=== PATIENT | male | born 2005 | race Caucasian/White ===

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

== ENCOUNTER 2023-02-21 15:14 | Emergency (ER) | payer OTHER ==
[~2023-02-21] VITALS: Ht 185.4 cm; Wt 80.0 kg
[2023-02-21] MEDS ORDERED: NAPROSYN500 MG PO (15:41)
[2023-02-21 15:54] VITALS: BP 143/81
== END 2023-02-21 15:52 | disposition home or self-care (01) ==
LOC: ED 15:14
DX: S39.011A Strain of muscle, fascia and tendon of abdomen, initial encounter (principal); J45.909 Unspecified asthma, uncomplicated; Z88.6 Allergy status to analgesic agent; X50.0XXA Overexertion from strenuous movement or load, initial encounter; Y99.0 Civilian activity done for income or pay
CPT/HCPCS: 99283

== ENCOUNTER 2023-03-02 18:38 | Emergency (ER) | payer OTHER ==
[~2023-03-02] VITALS: Ht 185.4 cm; Wt 79.0 kg
[~2023-03-02 18:38] MED LIST changes: +NAPROSYN500 MG PO
--- OUTSIDE RECORDS SUMMARY | 2023-03-02 18:45 | XMS ---
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 ESavanna VISIT COUNT (12 MO.) 2 [facility] TOTAL 2 NOTE: Visits indicate total known visits. ED/UCC VISIT TRACKING (12 MO.) 03/02/2023 18:39 [facility] [place] TYPE: Emergency COMPLAINT: - ALCOHOL ABUSE 02/21/2023 15:[address] [facility] [place] TYPE: Emergency COMPLAINT: - BACK PAIN DIAGNOSES: - Allergy status to analgesic agent - Civilian activity done for income or pay - Overexertion from strenuous movement or load, initial encounter - Right lower quadrant pain - Strain of muscle, fascia and tendon of abdomen, initial encounter - Unspecified asthma, uncomplicated INPATIENT VISIT TRACKING (12 MO.) No inpatient visits to display in this time frame [email or web address]
[2023-03-02 18:48] LABS: BASOPHILS 0.7 % (0-2); EOSINOPHILS 4.3 % (0-6); HEMATOCRIT 43.4 % (35.0-50.0); HEMOGLOBIN 15.1 g/dL (12.0-18.0); LYMPHOCYTES 32.4 % (24-44); MCH 31.2 (27-36); MCHC 34.7 g/dl (30-36); MCV 89.8 fl (81-99); MONOCYTES 7.9 % (0-12); NEUTROPHILS 54.7 % (39-80); PLATELET COUNT 329 K/uL (140-440); RBC 4.83 M/ul (4.3-5.7); RDW 13.4 (10.5-15.0)
[2023-03-02 19:12] LABS: ACETAMINOPHEN 0 ug/mL (10-30); ALBUMIN 4.5 g/dL (3.4-5.0); ALCOHOL, MEDICAL 171 ng/dL (<3); ALKALINE PHOSPHATASE 79 U/L (46-116); ALT (SGPT) 20 U/L (14-59); AST (SGOT) 17 U/L (15-37); BILIRUBIN, TOTAL 0.2 ng/dL (0.2-1.0); BUN/CREATININE RATIO 16.86 (6.0-28.6); CALCIUM 9.1 mg/dL (8.5-10.1); CARBON DIOXIDE 26 mmol/L (21-32); CHLORIDE 101 mmol/L (98-107); CREATININE, SERUM 0.83 mg/dL (0.70-1.30); GLOMERULAR FILTRATION RATE,EST 129 mL/min (>60); PROTEIN, TOTAL 7.5 g/dL (6.4-8.2); SALICYLATE 1.6 mg/dL (2.8-20.0); TSH, 3RD GENERATION 1.961 uIU/mL (0.516-4.130); UREA NITROGEN 14 mg/dL (7-18)
[2023-03-02 20:08] LABS: AMPHETAMINES, URINE NEGATIVE (NEGATIVE); BARBITURATES, URINE NEGATIVE (NEGATIVE); BENZODIAZEPINE, URINE NEGATIVE (NEGATIVE); BUPRENORPHINE, URINE NEGATIVE (NEGATIVE); CANNABINOID, URINE NEGATIVE (NEGATIVE); COCAINE, URINE NEGATIVE (NEGATIVE); ECSTASY, URINE NEGATIVE (NEGATIVE); FENTANYL, URINE NEGATIVE (NEGATIVE); METHADONE, URINE NEGATIVE (NEGATIVE); OPIATES, URINE NEGATIVE (NEGATIVE); OXYCODONE, URINE NEGATIVE (NEGATIVE); PHENCYCLIDINE, URINE NEGATIVE (NEGATIVE)
[2023-03-02 21:50] VITALS: BP 133/66
== END 2023-03-02 21:40 | disposition home or self-care (01) ==
LOC: ED 18:38
PROVIDERS: Emergency Medicine
DX: F10.129 Alcohol abuse with intoxication, unspecified (principal); F17.210 Nicotine dependence, cigarettes, uncomplicated; Z88.7 Allergy status to serum and vaccine
CPT/HCPCS: 36415; 80053; 80307; 84443; 85025; 96374; 99284-25; A9270; G0480; J2405; J7030

== ENCOUNTER 2023-10-04 20:16 | Emergency (ER) | payer OTHER ==
[~2023-10-04] VITALS: Ht 185.4 cm; Wt 79.0 kg
[~2023-10-04 20:16] MED LIST changes: +LOMOTIL TABLET1 EACH PO; +ONDANSETRON ODT8 MG PO
[2023-10-04] MEDS ORDERED: ondansetron HCL 4 MG/2 ML VIAL IV ONE (20:30)
[2023-10-04] MEDS ORDERED: SODIUM CHLORIDE 0.9% 1,000 ML IV ONE (20:30)
[2023-10-04 20:53] LABS: BASOPHILS 0.8 % (0-2); EOSINOPHILS 1.8 % (0-6); HEMATOCRIT 43.3 % (35.0-50.0); HEMOGLOBIN 14.8 g/dL (12.0-18.0); LYMPHOCYTES 38.1 % (24-44); MCH 30.2 (27-36); MCHC 34.2 g/dl (30-36); MCV 88.5 fl (81-99); MONOCYTES 5.8 % (0-12); NEUTROPHILS 53.5 % (39-80); PLATELET COUNT 286 K/uL (140-440); RBC 4.89 M/ul (4.3-5.7); RDW 13.8 (10.5-15.0)
[2023-10-04 21:07] LABS: ALBUMIN 4.3 g/dL (3.4-5.0); ALBUMIN/GLOBULIN RATIO 1.54 (1.1-2.4); ANION GAP 10.4 (7-21); BILIRUBIN, TOTAL 0.3 ng/dL (0.2-1.0); BUN/CREATININE RATIO 15.66 (6.0-28.6); CALCIUM 9.1 mg/dL (8.5-10.1); CREATININE, SERUM 0.83 mg/dL (0.70-1.30); MAGNESIUM 1.9 mg/dL (1.8-2.4); POTASSIUM 3.4 mmol/L (3.5-5.1); PROTEIN, TOTAL 7.1 g/dL (6.4-8.2)
[2023-10-04] MEDS ORDERED: ONDANSETRON 4 MG HOME.PACK SL ONE (21:30)
[2023-10-04 21:42] VITALS: BP 119/72
== END 2023-10-04 21:42 | disposition home or self-care (01) ==
LOC: ED 20:16
PROVIDERS: Family Medicine
DX: T67.5XXA Heat exhaustion, unspecified, initial encounter (principal); X30.XXXA Exposure to excessive natural heat, initial encounter; J45.909 Unspecified asthma, uncomplicated; Z88.6 Allergy status to analgesic agent
CPT/HCPCS: 36415; 80053; 83735; 85025; A9270; J2405; J7030

== ENCOUNTER 2024-07-11 22:05 | Emergency (ER) | payer OTHER ==
[~2024-07-11] VITALS: Ht 185.4 cm; Wt 87.0 kg
[2024-07-11 22:29] LABS: HEMATOCRIT 45.5 % (35.0-50.0); HEMOGLOBIN 15.6 g/dL (12.0-18.0); MCH 30.2 (27-36); MCHC 34.2 g/dl (30-36); MCV 88.1 fl (81-99); PLATELET COUNT 371 K/uL (140-440); RBC 5.16 M/ul (4.3-5.7); RDW 14.1 (10.5-15.0)
[2024-07-11] MEDS ORDERED: ondansetron HCL 4 MG/2 ML VIAL IV ONE (22:30)
[2024-07-11] MEDS ORDERED: SODIUM CHLORIDE 0.9% 1,000 ML IV ONE ×2 (22:30→23:15)
[2024-07-11 22:42] LABS: EOSINOPHILS, MANUAL DIFF 5; LYMPHOCYTES, MANUAL DIFF 53; MONOCYTES, MANUAL DIFF 1; NEUTROPHILS, MANUAL DIFF 41
[2024-07-11 22:44] LABS: ALBUMIN 4.7 g/dL (3.4-5.0); ALBUMIN/GLOBULIN RATIO 1.57 (1.1-2.4); ANION GAP 18.8 (7-21); BILIRUBIN, TOTAL 0.6 mg/dL (0.2-1.0); BUN/CREATININE RATIO 15.55 (6.0-28.6); CALCIUM 8.7 mg/dL (8.5-10.1); CREATININE, SERUM 0.9 mg/dL (0.70-1.30); MAGNESIUM 2.3 mg/dL (1.8-2.4); POTASSIUM 2.8 mmol/L (3.5-5.1); PROTEIN, TOTAL 7.7 g/dL (6.4-8.2)
[2024-07-11] MEDS ORDERED: droPERidol 5 MG/2 ML VIAL IV ONE (22:45)
[2024-07-11] MEDS ORDERED: POTASSIUM CHLORIDE 10 MEQ/100 ML BAG IV ONE (23:00)
[2024-07-11] MEDS ORDERED: NALTREXONE HCL50 MG PO (23:37)
[2024-07-12 00:44] VITALS: BP 101/45
== END 2024-07-12 00:51 | disposition home or self-care (01) ==
LOC: ED 22:05
PROVIDERS: Family Medicine
DX: F10.129 Alcohol abuse with intoxication, unspecified (principal); J45.909 Unspecified asthma, uncomplicated; Z88.6 Allergy status to analgesic agent
CPT/HCPCS: 36415; 80053; 80307; 83735; 85025; 96365; 96375; 99284-25; A6590; G0480; J1790; J2405; J3480; J7030

== ENCOUNTER 2024-08-30 20:45 | Emergency (ER) | payer OTHER ==
[~2024-08-30] VITALS: Ht 185.4 cm; Wt 100.0 kg
[~2024-08-30 20:45] MED LIST changes: +NALTREXONE HCL50 MG PO
[2024-08-30 21:44] LABS: BASOPHILS 0.6 % (0.2-1.2); EOSINOPHILS 4.8 % (0.8-7.0); HEMATOCRIT 46.2 % (40.1-51.0); HEMOGLOBIN 15.7 g/dL (13.7-17.5); LYMPHOCYTES 37.4 % (21.8-53.1); MCV 88.2 fL (79.0-92.2); MONOCYTES 5.5 % (5.3-12.2); NEUTROPHILS 51.4 % (34.0-67.9); PLATELET COUNT 294 K/uL (163-337); RBC 5.24 M/uL (4.63-6.08)
[2024-08-30 22:08] LABS: ACETAMINOPHEN 0 ug/mL (10-30); ALBUMIN 4.5 g/dL (3.4-5.0); ALBUMIN/GLOBULIN RATIO 1.41 (1.1-2.4); ALCOHOL, MEDICAL 188 ng/dL (<3); ALKALINE PHOSPHATASE 80 U/L (46-116); ALT (SGPT) 184 U/L (14-59); ANION GAP 18.8 (7-21); AST (SGOT) 65 U/L (15-37); BILIRUBIN, TOTAL 0.3 mg/dL (0.2-1.0); BUN/CREATININE RATIO 17.77 (6.0-28.6); CALCIUM 9.3 mg/dL (8.5-10.1); CARBON DIOXIDE 24 mmol/L (21-32); CHLORIDE 106 mmol/L (98-107); GLOMERULAR FILTRATION RATE,EST 125 mL/min (>60); POTASSIUM 3.8 mmol/L (3.5-5.1); PROTEIN, TOTAL 7.7 g/dL (6.4-8.2); SALICYLATE 3.8 mg/dL (2.8-20.0); TSH, 3RD GENERATION 1.334 uIU/mL (0.358-3.740); UREA NITROGEN 16 mg/dL (7-18)
[2024-08-30 22:15] LABS: BILIRUBIN, URINE NEGATIVE (negative); BLOOD/HGB, URINE NEGATIVE (Negative); KETONE, URINE TRACE (Negative); LEUK ESTERASE, URINE NEGATIVE (negative); NITRITE, URINE NEGATIVE (negative)
[2024-08-30 22:30] LABS: AMPHETAMINES, URINE NEGATIVE (NEGATIVE); BARBITURATES, URINE NEGATIVE (NEGATIVE); BENZODIAZEPINE, URINE NEGATIVE (NEGATIVE); BUPRENORPHINE, URINE NEGATIVE (NEGATIVE); CANNABINOID, URINE NEGATIVE (NEGATIVE); COCAINE, URINE NEGATIVE (NEGATIVE); ECSTASY, URINE NEGATIVE (NEGATIVE); FENTANYL, URINE NEGATIVE (NEGATIVE); METHADONE, URINE NEGATIVE (NEGATIVE); OPIATES, URINE NEGATIVE (NEGATIVE); OXYCODONE, URINE NEGATIVE (NEGATIVE); PHENCYCLIDINE, URINE NEGATIVE (NEGATIVE)
[2024-08-30] MEDS ORDERED: ONDANSETRON 4 MG TAB ODT SL ONE (23:15)
[2024-08-31 00:46] VITALS: BP 136/67
== END 2024-08-31 00:46 | disposition home or self-care (01) ==
LOC: ED 20:45
PROVIDERS: Emergency Medicine
DX: F10.129 Alcohol abuse with intoxication, unspecified (principal); R45.851 Suicidal ideations; J45.909 Unspecified asthma, uncomplicated
CPT/HCPCS: 36415; 80053; 80307; 81003; 84443; 85025; 99284; A9270; G0480